=== PATIENT | female | born 1940 | race Two or more races ===

== ENCOUNTER 2016-04-01 12:28 | Emergency (ER) | payer SELFPAY ==
[2016-04-01 12:29] VITALS: BMI 26.9
[2016-04-01 12:44] VITALS: TEMP 98.5
[2016-04-01] MEDS ORDERED: SODIUM CHLORIDE 0.9% 10 ML FLUSH FLUSH PRN (14:46)
--- NOTE | 2016-04-01 15:03 | DIRPT ---
CLINICAL DATA: Chest pain elevated blood pressure blurred vision EXAM: PORTABLE CHEST 1 VIEW COMPARISON: None. FINDINGS: The heart size and mediastinal contours are within normal limits. Both lungs are clear. The visualized skeletal structures are unremarkable. IMPRESSION: No active disease. Electronically Signed By: Chandler Young M.D. On: 04/01/2016 15:00
[2016-04-01 15:04] LABS: RBC/URINE 0-2 (0-5); WBC/URINE 20-30 (0-5)
[2016-04-01 15:05] LABS: LEUKOCYTES/URINE NEG (NEGATIVE); NITRITE/URINE NEG (NEGATIVE); URINE OCCULT BLOOD NEG (NEG/TRACE)
[2016-04-01 15:35] LABS: PARTIAL THROMB. TIME 19.7 SEC (22-35)
--- NOTE | 2016-04-01 16:00 | DIRPT ---
CLINICAL DATA: Headaches and blurry vision EXAM: CT HEAD WITHOUT CONTRAST TECHNIQUE: Contiguous axial images were obtained from the base of the skull through the vertex without intravenous contrast. COMPARISON: None. FINDINGS: The bony calvarium is intact. Mild atrophic changes are noted. No findings to suggest acute hemorrhage, acute infarction or space-occupying mass lesion are noted. IMPRESSION: No acute abnormality seen. Mild atrophic changes are noted. Electronically Signed By: Bautista Hernandez M.D. On: 04/01/2016 15:57
[2016-04-01 16:14] LABS: AUTOMATED BASOPHIL 0.4 % (0-2); AUTOMATED EOSINOPHIL 1.7 % (0-5); AUTOMATED LYMPH 34.8 % (17-44); AUTOMATED NEUTROPHIL 54.1 % (45-76); MPV 9.6 fL (7.4-10.4)
--- NOTE | 2016-04-01 16:27 | EDPRACDOC ---
[id number] 4Bd Time Seen by Provider: 04/01/16 14:44 Information Source: Patient, [employer] Home Medications: Home Medications Amlodipine [Norvasc] 5 mg PO DAILY #30 tab 04/01/16 Aspirin [Aspirin EC] 81 mg PO DAILY 04/01/16 Carvedilol [Coreg] 25 mg PO BID 04/01/16 Glyburide [Micronase] 1.25 mg PO QAM 04/01/16 Lovastatin 10 mg PO DAILY 04/01/16 Nitrofurantoin [Macrobid] 100 mg PO BID #20 cap 04/01/16 Allergies/Adverse Reactions: Allergies Allergy/AdvReac Type Severity Reaction Status Date / Time No Known Allergies Allergy Verified 04/01/16 12:44 - History of Present Illness Onset: ON-GOING HPI: PT PRESENTS TODAY WITH [place], DIZZINESS AND HIGH BLOOD PRESSURE AT HOME (180/110). PT STATES THAT SHE HAS A PMH OF MIGRAINES, AND THIS IS A MILD MIGRAINE. HER MAIN CONCERN IS THE BLOOD PRESSURE AND DIZZINESS. DENIES FEVER, ENT SYMPTOMS, CP, SHOB, ABD PAIN, N/V/D. NO APPARENT DISTRESS. Location: Reports: Generalized Pain Quality: Reports: Mild, Throbbing, Like Previous Headaches Relevant History of: Reports: Known Headache disorder Associated Signs and Symptoms: Reports: Other (DIZZINESS) ED Past Medical History - History Reviewed Yes Nurses notes reviewed and agree except as marked - Patient Medical History Cardiac History: Reports: Hypertension Psychological History: Denies: Depression Systemic History: Reports: Diabetes. Denies: Cancer - Social Medical History Smoking Status: Former smoker EDM Review of Systems - Review of Systems ROS Negative Except as Marked: Yes All systems reviewed and were negative except as marked Constitutional: No Symptoms Reported Eyes: No Symptoms Reported Ears: No Symptoms Reported Throat: No Symptoms Reported Nose: No Symptoms Reported Respiratory: No Symptoms Reported Cardiovascular: No Symptoms Reported Gastrointestinal: No Symptoms Reported Neurological: Dizziness, Headache Musculoskeletal: No Symptoms Reported Integumentary: No Symptoms Reported - Physical Exam Constitutional: Alert (Awake), No apparent distress Oriented to: Time, Person, Place Last recorded Vital Signs: Last Vital Signs Temp 98.5 F 04/01/16 12:42 Pulse 75 04/01/16 14:36 Resp 18 04/01/16 14:36 BP 203/80 H 04/01/16 14:36 Pulse Ox 96 04/01/16 14:36 Oxygen Pulse Oxygen Saturation 96 O2 Device Room Air Oxygen Flow Rate Fraction of Inspired Oxygen ( FIO2) - HEENT Head: Normal Eye Exam: Normal Oropharynx: Normal Tympanic Membrane: Normal ENT EAC: Normal Nose: No Symptoms Reported Neck: Normal, Denies Pain, Midline - Respiratory/Cardiovascular Respiratory: Normal - CTA Cardiovascular: Normal - GI Palpation: Normal Tenderness: Non tender - Musculoskeletal Back: Normal Extremities: Normal - Integumentary Skin: Normal Lymphatics: Normal - Neurologic Cerebellar: Normal Mood Description: Normal Thought: Coherent Perception: Normal - Re-evaluation Re-evaluation 1 Re-evaluation Time: 17:28 Re-evaluation: PT SLEEPING. NO NEW SYMPTOMS. - Results 04/01/16 16:05 04/01/16 16:05 PT 10.0 SEC (9.2-11.2) 04/01/16 15:08 INR 1.0 04/01/16 15:08 APTT 19.7 SEC (22-35) L 04/01/16 15:08 Urine Color Yellow 04/01/16 14:45 Urine Clarity Hazy 04/01/16 14:45 Urine pH 6.0 (5.0-8.0) 04/01/16 14:45 Ur Specific [place] 1.015 (1.003-1.035) 04/01/16 14:45 Urine Protein 1+ (NEG/TRACE) H 04/01/16 14:45 Urine Glucose (UA) Neg (NEGATIVE) 04/01/16 14:45 Urine Ketones Neg (NEGATIVE) 04/01/16 14:45 Urine Occult Blood Neg (NEG/TRACE) 04/01/16 14:45 Urine Nitrite Neg (NEGATIVE) 04/01/16 14:45 Urine Bilirubin Neg (NEGATIVE) 04/01/16 14:45 Urine Urobilinogen 0.2 MG/DL (0-1) 04/01/16 14:45 Ur Leukocyte Esterase Neg (NEGATIVE) 04/01/16 14:45 Urine RBC 0-2 (0-5) 04/01/16 14:45 Urine WBC 20-30 (0-5) H 04/01/16 14:45 Urine WBC Clumps Present (NONE) H 04/01/16 14:45 Ur Epithelial Cells 2+ 04/01/16 14:45 Urine Bacteria 1+ (NEG/FEW) H 04/01/16 14:45 Urine Mucus Occ (NEG/OCC) 04/01/16 14:45 Lab Results 04/01/16 04/01/16 15:08 14:45 PT 10.0 INR 1.0 APTT 19.7 L Urine Color Yellow Urine Clarity Hazy Urine pH 6.0 Ur Specific [place] 1.015 Urine Protein 1+ H Urine Glucose (UA) Neg Urine Ketones Neg Urine Occult Blood Neg Urine Nitrite Neg Urine Bilirubin Neg Urine Urobilinogen 0.2 Ur Leukocyte Esterase Neg Urine RBC 0-2 Urine WBC 20-30 H Urine WBC Clumps Present H Ur Epithelial Cells 2+ Urine Bacteria 1+ H Urine Mucus Occ - EKG EKG #1 EKG Time: 12:47 -: Yes EKG interpreted by me Rate: bpm: 71 [place]: Normal Rhythm: NSR Block: None Hypertrophy: None ST: Normal - Additional Information PLEASE LET IT BE DOCUMENTED THAT PTS HR IS NOT 234. THIS IS NOT CORRECT DOCUMENTATION BY NURSE. Decision Time to Discharge: 17:28 - Departure Disposition: Home Condition: Good Final Diagnosis: Dehydration, Urinary tract infection Hypertension Qualifiers: Hypertension type: essential hypertension Qualified Code(s): I10 - Essential ( primary) hypertension Instructions: Urinary Tract Infection in Women (ED), Chronic Hypertension (ED) , Dysuria Education/Counseling Given To: Patient, Family Member Education/Counseling Given Regarding: Diagnosis, Treatment, Follow Up Referrals: Cate Rai NP [Primary Care Provider] - One Week Prescriptions: Amlodipine [Norvasc] 5 mg PO DAILY #30 tab Nitrofurantoin [Macrobid] 100 mg PO BID #20 cap Additional Instructions: REST AND BE SURE TO DRINK PLENTY OF WATER. PLEASE CALL YOUR PRIMARY CARE DOCTOR REGARDING THE NEW MEDICATION YOU WERE STARTED ON TODAY.
[2016-04-01 16:32] LABS: BLOOD UREA NITROGEN 27 MG/DL (7-17); CALC CORRECTED 9.1 MG/DL (8.4-10.2); CALCIUM 8.8 MG/DL (8.4-10.2); CALCULATED OSMOLALITY 279 MOs/Kg (270-290); CHLORIDE 104 mEq/L (98-107); GLUCOSE 108 MG/DL (70-99); SODIUM LEVEL 142 mEq/L (137-146); TOTAL PROTEIN 6.8 G/DL (6.3-8.2)
[2016-04-01] MEDS ORDERED: LABETALOL 20 MG/4 ML SYRINGE IV ONE (16:44)
[2016-04-01] MEDS ORDERED: NS 500 ML IV ONE (17:17)
[2016-04-01] MEDS ORDERED: NITROFURANTOIN 100 MG CAP PO ONE (17:32)
[2016-04-01] MEDS ORDERED: ENALAPRILAT 1.25 MG/ML VIAL IV ONE (18:15)
[2016-04-01 18:47] VITALS: PULSE 64
[2016-04-01 19:35] VITALS: BP 182/79
== END 2016-04-01 19:42 | disposition home or self-care (01) ==
LOC: ED 12:28
DX: N39.0 Urinary tract infection, site not specified (principal); E86.0 Dehydration
CPT/HCPCS: 36415; 70450; 71010; 80053; 81001; 84484; 85025; 85610; 85730; 87077; 87086; 87186; 93005; 96361; 96374; 96375; 99284; J3490